=== PATIENT | male | born 1940 | race Caucasian/White ===

== ENCOUNTER 2020-09-24 14:43 | Emergency (ER) | payer MEDICARE, SELFPAY ==
[2020-09-24 14:44] VITALS: BP 176/69; PULSE 55; RESP 18; TEMP 36.1; O2SAT 97; BMI 28.7
--- NOTE | 2020-09-24 15:15 | EKG12_ITS ---
Test Reason : HEART RATE Blood Pressure : / mmHG Vent. Rate : 069 BPM Atrial Rate : 068 BPM P-R Int : 280 ms QRS Dur : 086 ms QT Int : 408 ms P-R-T Axes : 062 043 043 degrees QTc Int : 437 ms Sinus rhythm with 1st degree A-V block with Premature supraventricular complexes Low voltage QRS Borderline ECG Confirmed by JEFFERSON ALLEN, BRETT ([id number]), assistant editor MAYELA NÚÑEZ ([id number]) on 09/28/2020 10:28:24 AM Referred By: Confirmed By:BRETT PAULINO MD
[2020-09-24 15:45] VITALS: BP 119/93; PULSE 62; RESP 12; O2SAT 97
--- NOTE | 2020-09-24 15:56 | ED.DCSUM_ITS ---
History of Present Illness Chief Complaint: Abd Pain Informant: Patient Onset: Days Context: Gradual Onset Timing: Intermittent Current Severity: Moderate Maximum Severity: Moderate Narrative: Patient is a 80-year-old male with medical history significant for hypercholesterolemia, BPH, who presents to the emergency department abdominal pain. Patient states that about a week ago, he was try to move his bowels. He states that he was straining and felt constipated. He states since that time, has had intermittent pain in his right upper quadrant. He does have prior cholecystectomy. He denies any nausea or vomiting. He denies any fevers. He was sent to urgent care. Apparently, they were concerned for an irregular pulse. The patient was sent over here for further evaluation. EKG obtained in triage shows sinus rhythm with a few PACs. There is no atrial fibrillation. There is no acute ischemia. He denies chest pain or dyspnea. Prior similar symptoms: No Recent Illness/Hospitalization: No Past Medical History - Allergies and Home Meds Allergies/Adverse Reactions: Allergies No Known Allergies Allergy (Verified 09/24/20 14:48) Primary Care Physician: Jenny Vega MD [STAFF PHYSICIAN] - Prior records reviewed: Yes Past Medical History: - - Cholesterol Surgical History: cholecystectomy Smoking Status: Former smoker - Family History Paternal Family History: Reports: Heart Disease - His father at the age of 46 DUE TO possible NM Review of Systems General: Denies: Chills, Fever, Sweats Eyes: Denies: Visual changes - bilaterally, Diplopia ENT: Denies: Rhinorrhea, Sore throat Cardiovascular: Denies: Chest pain, Palpitations Respiratory: Denies: Dyspnea, Cough, Dyspnea on exertion Gastrointestinal: Reports: Abdominal pain. Denies: Nausea, Vomiting, Diarrhea, Melena, Hematochezia Genitourinary: Denies: Dysuria, Hematuria, Frequency Musculoskeletal: Denies: Back pain, Extremity Pain Skin: Denies: Rash, Wounds Neurological: Denies: Headache, Weakness, Numbness Physical Exam Vital Signs/Narrative: Vital Signs Temp Pulse Resp BP Pulse Ox 09/24/20 15:45 62 12 119/93 H 97 09/24/20 14:44 96.9 F L 55 L 18 176/69 H 97 Inital Vital Signs reviewed: Yes General: Well nourished, Well developed, No Acute Distress Head: Normocephalic, Atraumatic Eyes: Perrl, EOMI ENT: Moist mucous membranes, No rhinorrhea Neck: Supple, Nontender Cardiovascular: Regular rate, Regular rhythm, No murmurs Respiratory: No distress, CTA bilaterally, Chest nontender Abdomen: Soft, Nontender, Nondistended, Normal bowel sounds Back: Nontender, Normal Inspection Extremities: Nontender, No edema Skin: Normal color, No rash Neurological: Alert, Oriented x3, Cranial nerves II-XII grossly intact, Normal Strength, Normal Sensation Psychological: Normal affect, Normal Mood Diagnostic/Tx/Re-eval Clinical Impression(s) from Imaging Studies Abdomen/Pelvis CT 09/24/20 16:40 IMPRESSION: No acute abnormalities identified. Mild left renal pelvocaliectasis but no evidence for gross hydronephrosis or ureteral calculus. Nonvisualization of gallbladder consistent with prior cholecystectomy and probable appendectomy.. Electronically Signed: Adithya Portillo MD at 17:14 EDT , Service support , Abnormal Lab Results 09/24/20 09/24/20 16:03 16:03 WBC 5.2 RBC 5.20 Hgb 16.1 Hct 49.1 MCV 94.4 H MCH 31.0 MCHC 32.8 RDW Std Deviation 48.9 H RDW Coeff of Suresh 14.1 Plt Count 148 L MPV 9.2 Immature Gran % (Auto) 0.400 Neut % (Auto) 60.3 Lymph % (Auto) 26.3 [place] % (Auto) 11.0 H Eos % (Auto) 1.0 Baso % (Auto) 1.0 Absolute Neuts (auto) 3.1 Absolute Lymphs (auto) 1.36 Nucleated RBC % 0 Sodium 139 Potassium 4.3 Chloride 106 Carbon Dioxide 27.0 Anion Gap 6 BUN 18 Creatinine 1.36 H Estim Creat Clear Calc 45.48 Est GFR (MDRD) Af Amer 65 Est GFR (MDRD) Non-Af 54 L BUN/Creatinine Ratio 13.2 Glucose 91 Calcium 8.9 Total Bilirubin 1.30 H AST 18 ALT 25 Alkaline Phosphatase 67 Troponin I < 0.015 Total Protein 7.6 Albumin 3.6 Globulin 4.0 Albumin/Globulin Ratio 0.9 Lipase 114 - Rhythm Strip Rhythm Strip: Sinus Rhythm Rate: 70 Ectopy: PAC(s) - EKG Initial EKG Interpretation: Sinus Rhythm, No Acute Injury Pattern, AV Block Prior: No Prior - Medical Decision Making The patient presents with intermittent abdominal cramping. His abdomen is soft and nontender. He was sent over because they were concerned for an irregular heart rate. Again, his EKG shows first-degree AV block with a few PACs. There is no evidence of atrial fibrillation. Screening labs obtained were unremarkable. Patient underwent CT. There is no evidence of acute intra- abdominal process. Patient is a no further symptoms. At this point, do feel that he is safe for outpatient follow-up. He is comfortable with this plan of care. Impression 1. PACs 2. Right upper quadrant abdominal pain ED Disposition - Plan for ED Patient: Instructions: ED Palpitations, ED Unknown Causes of Abdominal ... Referrals: Jenny Vega MD [STAFF PHYSICIAN] -
[2020-09-24] MEDS: 0.9% Normal Saline 1,000 ML 1000 ML IV (16:05)
[2020-09-24 16:13] LABS: Absolute Lymphocyte Count 1.36 X10^3/uL (0.83-4.51); Absolute Neutrophil Count 3.1 X10^3/uL (2.0-7.7); Basophil# 0.05 X10^3/uL; Eosinophil# 0.05 X10^3/uL; Hematocrit 49.1 % (40-54); Hemoglobin 16.1 g/dL (13.0-16.5); Lymphocyte # 1.36 X10^3/ul (4.0); Lymphocyte % 26.3 % (19-41); Mean Corp Hgb Conc 32.8 g/dL (32-36); Mean Corpuscular Volume 94.4 fL (80-94); Mean Platelet Vol. 9.2 fl (6.2-12.0); Monocyte# 0.57 X10^3/uL; NRBC Flagged by Analyzer 0 % (0-5); Neutrophil # 3.13 X10^3/uL (2.7-7.7); Neutrophil % 60.3 % (47-70); Platelet Count 148 K/mm3 (150-450); RBC Distribution Width CV 14.1 % (11.6-14.6); RBC Distribution Width SD 48.9 fl (35.1-43.9); White Blood Count 5.2 K/mm3 (4.4-11.0)
[2020-09-24 16:30] LABS: ALB/GLOB Ratio 0.9 RATIO (0.9-2.4); AST(SGOT) 18 U/L (15-37); Alanine Aminotransfer ALT/SGPT 25 U/L (16-61); Albumin, Serum 3.6 g/dL (3.2-5.0); Alkaline Phosphatase 67 U/L (45-117); Anion Gap 6 (5-15); BUN 18 mg/dL (7-18); BUN/Creat Ratio 13.2 RATIO (10-20); Calcium,Total 8.9 mg/dL (8.5-10.1); Chloride 106 mmol/L (98-107); Creatinine, Serum 1.36 mg/dL (0.70-1.30); EST Glomerular Filtration Rate 54 mL/min (>60); Est Glom Filt Rate - Afr Amer 65 mL/min (>60); Estimated Creatinine Clearance 45.48 ml/min; Glucose 91 mg/dL (74-106); Lipase 114 U/L (73-393); Potassium 4.3 mmol/L (3.5-5.1); Protein, Total 7.6 g/dL (6.4-8.2); Sodium Level 139 mmol/L (136-145)
--- NOTE | 2020-09-24 16:40 | CT_ITS ---
STUDY: CT ABDOMEN AND PELVIS WITH CONTRAST REASON FOR EXAM: Male, 80 years old. ruq pain RADIATION DOSAGE (If Supplied By Facility): CTDIvol = ( 10.63 ) mGy, DLP = ( 1053.20 ) mGycm TECHNIQUE: Transaxial images were obtained from the dome of the diaphragm to the symphysis pubis without oral contrast. IV-100 ML ISOVUE 300 was administered. Sagittal and coronal images were reconstructed. Individualized dose optimization techniques were used for this CT. COMPARISON: None. FINDINGS: Tiny granulomatous calcification at the right lung base.. The visualized portions of the heart are within normal limits. Normal liver. Gallbladder not visualized which may be consistent with prior cholecystectomy Tiny granulomatous calcifications within normal size spleen.. Normal pancreas. Normal bilateral adrenal glands. Tiny cyst in the right kidney.. Mild left renal pelvocaliectasis but no gross hydronephrosis or evidence for ureteral calculus.. Normal visualized stomach. Normal small intestine. Normal colon. Normal appendix is not visualized which may be due to prior appendectomy. There are no secondary signs for acute appendicitis Mild atherosclerotic changes of the aorta without evidence for aneurysm. Normal inferior vena cava. Normal retroperitoneum. Normal urinary bladder. Nonspecific enlargement of prostate. Small bilateral fat-containing inguinal hernias. Lumbar spine demonstrates mild spondylosis CT/Abdomen/Pelvis W IV Cont ONLY IMPRESSION: No acute abnormalities identified. Mild left renal pelvocaliectasis but no evidence for gross hydronephrosis or ureteral calculus. Nonvisualization of gallbladder consistent with prior cholecystectomy and probable appendectomy.. Electronically Signed: Adithya Portillo MD at 17:14 EDT , Service support ,
[2020-09-24 17:37] VITALS: BP 126/80; PULSE 56; RESP 16; TEMP 36.1
== END 2020-09-24 17:37 | disposition home or self-care (01) ==
PROVIDERS: Emergency Provider Emergency Medicine; PCP Family Medicine
DX: I49.1 Atrial premature depolarization (principal); R10.11 Right upper quadrant pain; E78.00 Pure hypercholesterolemia, unspecified; Z87.891 Personal history of nicotine dependence; Z90.49 Acquired absence of other specified parts of digestive tract; Z79.82 Long term (current) use of aspirin
CPT/HCPCS: 74177; 80053; 83690; 84484; 85025; 93005; 96360; 96361; 99283; Q9967; A4216

== ENCOUNTER 2021-10-05 12:20 | Emergency (ER) | payer MEDICARE, SELFPAY ==
[2021-10-05 12:21] VITALS: BP 118/77; PULSE 81; RESP 16; TEMP 36.6; O2SAT 100; BMI 28.7
--- NOTE | 2021-10-05 12:56 | EDS_ITS ---
HPI History of Present Illness Chief Complaint: Nausea/Vomiting/Diarrhea Detail of Chief Complaint: Vomiting and diarrhea for approximately 48 hours Informant: patient Narrative Narrative: Patient presents to the emergency department with vomiting and diarrhea that started around 1 AM Monday morning. Patient has had frequent watery stools and frequent vomiting. He denies abdominal pain. He denies fever. He denies sick contacts. He denies eating any undercooked foods. Patient denies recent travel. Patient denies urinary symptoms. Prior similar symptoms: No PFSH PFSH Home Medications Pravastatin Sodium 10 mg PO QHS 02/23/14 [History Last Taken 02/22/14] aspirin 162 mg PO DAILY@0800 02/23/14 [History Last Taken 02/23/14] calcium-vitamin D3-vitamin K [Citracal-D3 Soft Chew] 2 ea PO DAILY 02/23/14 [History Last Taken 02/22/14] cholecalciferol (vitamin D3) [Vitamin D3] 1,000 unit PO QHS 02/23/14 [History Last Taken 02/22/14] levothyroxine 112 mcg PO MOTUTHFRSA 02/23/14 [History Last Taken 02/23/14] tamsulosin 0.4 mg PO QHS 02/23/14 [History Last Taken 02/22/14] melatonin-pyridoxine HCl (B6) 0.5 tab PO QHS 09/24/20 [History Last Taken Unknown] ondansetron 4 mg PO Q8H PRN PRN #10 tab 10/05/21 [Rx Last Taken Unknown] Allergy/AdvReac Type Severity Reaction Status Date / Time No Known Allergies Allergy Verified 10/05/21 12:23 Social History Smoking Status: Former smoker ROS [facility] ED Constitutional Constitutional ED: Reports systems reviewed and no addt'l complaints, except as documented; Denies body ache(s), change in weight or chills Eyes Eyes: Denies acute decrease in peripheral vision, change in vision, double vision or loss of vision ENT ENT ED: Reports none; Denies ear pain, lip swelling, loss taste/smell, neck pain, otalgia or sore throat Cardiovascular Cardiovascular: Reports none; Denies abdominal pain, chest pain with activity, leg edema, lightheadedness, palpitations, rapid heart rate or syncope Respiratory/Chest Respiratory/Chest: Reports none; Denies change in mental status, dry cough, dyspnea, hemoptysis, shortness of breath at rest or shortness of breath with exertion Gastrointestinal Gastrointestinal: Reports none, diarrhea, nausea and vomiting; Denies abdominal pain, change in stool character, hematemesis, hematochezia, melena or rectal bleeding Genitourinary Genitourinary ED: Reports none; Denies abdominal discomfort, anuria, dysuria, genital pain or polyuria Musculoskeletal Musculoskeletal: Reports none; Denies arthralgias, back pain, difficulty walking, extremity pain, muscle weakness or myalgias Integumentary Reports none; Denies abscess or rash Neurologic Neurologic: Reports none; Denies abnormal gait, confusion, focal weakness, frequent falls, headache(s), loss of vision, numbness, paresthesias, radicular pain, vertigo or weakness Psychiatric Psychiatric: Reports systems reviewed and no addt'l complaints, except as documented and none; Denies behavioral changes, confusion, difficulty con centrating, hallucinations, suicidal ideation, tactile hallucinations or visual hallucinations Endocrine Endocrinology: Denies none, cold intolerance, excessive sweating, fatigue or heat intolerance Hematologic/Lymphatic Hematologic/Lymphatic: Reports none; Denies anemia, easy bleeding or easy bruising Allergic/Immunologic Allergic/Immunologic ED: Denies as per HPI, none, lip swelling, mouth swelling, throat swelling, tongue swelling or hives EXAM Physical Exam Const Vital Signs: 10/05/21 12:21 10/05/21 14:29 Temperature 97.8 F Temperature Source Temporal Pulse Rate 81 84 Respiratory Rate 16 17 Blood Pressure 118/77 122/73 H Blood Pressure Mean 90 89 Pulse Ox 100 Oxygen Delivery Method Room Air Positive well nourished and well developed General Appearance ED: well developed and NAD HEENT Reports TM's clear and dry mucous membranes normocephalic and atraumatic; Negative for trauma or tenderness Tympanic Membrane ED: Yes TM's clear Mouth ED: Yes dry mucous membranes Mouth: dry mucous membranes Eyes PERRL and EOMs intact bilaterally General Eye ED: Negative for pale conjunctiva or scleral icterus Neck no lymphadenopathy, supple and no JVD General: Negative for tenderness Chest Wall inspection of chest normal and palpation of chest normal Chest: Negative for tenderness Resp normal respiratory effort and clear to auscultation bilaterally Effort and Inspection: Negative for respiratory distress or pain with movement Auscultation: Negative for rhonchi, wheezes or diminished lung sounds Cardio regular rate, regular rhythm, S1 normal heart sound, S2 normal heart sound and no murmurs Peripheral Pulses: pulses 2+ throughout GI normal to inspection, nondistended, normoactive bowel sounds, soft to palpation, non-tender, non-distended and no masses Back/Spine no CVA tenderness and no thoracic nor lumbar tenderness Extremity normal to inspection General Extremety ED: Negative for edema General Extremity: Negative for edema Neuro oriented x3, CN's II-XII intact bilaterally, no sensory deficits noted and gait normal Sensorium / Orientation: awake, alert, oriented to person, oriented to place and oriented to time Motor Exam: strength 5/5 throughout and strength abnormal Psych mental status grossly normal Skin no rashes or lesions noted and no wounds MDM MDM MDM Narrative Medical decision making narrative: IV line established on arrival. Patient was given a liter normal same fluid bolus. Patient was given Zofran 4 mg IV and Imodium p.o. Patient was able to give a stool sample for enteric pathogens the results of which will be pending. Patient had no further vomiting while in the department. Lab work-up was significant for some mild acute kidney injury and dehydration. I discussed with patient admission for hydration however he would like to go home and try to drink more fluids with antinausea medicine. I feel otherwise patient looks well and this is reasonable. Patient advised to return if persistent vomiting, diarrhea, dehydration, or conditions worsen anyway. Patient given a prescription for Zofran and advised use of Imodium for the diarrhea. Patient to follow-up with his primary care physician in 3 to 5 days. Lab Data Attestation: I reviewed the patient's lab results. Labs: Laboratory Results - last 24 hr 10/05/21 10/05/21 12:51 12:51 WBC 9.0 RBC 5.63 Hgb 17.7 H Hct 53.0 MCV 94.1 H MCH 31.4 MCHC 33.4 RDW Std Deviation 50.7 H RDW Coeff of Suresh 14.7 H Plt Count 198 MPV 9.4 Immature Gran % (Auto) 0.300 Neut % (Auto) 75.8 H Lymph % (Auto) 9.4 L [place] % (Auto) 14.2 H Eos % (Auto) 0.0 Baso % (Auto) 0.3 Absolute Neuts (auto) 6.8 Absolute Lymphs (auto) 0.85 Nucleated RBC % 0 Sodium 138 Potassium 3.8 Chloride 110 H Carbon Dioxide 22.0 Anion Gap 6 BUN 42 H Creatinine 1.98 H Estim Creat Clear Calc 30.72 Est GFR (MDRD) Af Amer 42 L Est GFR (MDRD) Non-Af 35 L BUN/Creatinine Ratio 21.2 H Glucose 106 Calcium 8.7 Discharge Plan Triage Chief Complaint: Nausea/Vomiting/Diarrhea ED Provider: Luc Johnston Dx/Rx/DC Orders Clinical Impression: Viral gastroenteritis Instructions: ED Gastroenteritis, Viral (Adult) Prescriptions: New ondansetron [ondansetron] 4 MG tablet 4 mg PO Q8H PRN PRN (Reason: Nausea) Qty: 10 RF: 0 No Action tamsulosin 0.4 MG capsule 0.4 mg PO QHS RF: 0 levothyroxine 112 MCG tablet 112 mcg PO MOTUTHFRSA RF: 0 cholecalciferol (vitamin D3) [Vitamin D3] 1,000 UNIT capsule 1,000 unit PO QHS RF: 0 calcium-vitamin D3-vitamin K [Citracal-D3 Soft Chew] 1 EACH tablet,chewable 2 ea PO DAILY RF: 0 Pravastatin Sodium 20 MG tablet 10 mg PO QHS RF: 0 aspirin 325 MG tablet 162 mg PO DAILY@0800 RF: 0 melatonin-pyridoxine HCl (B6) 1 EACH tablet 0.5 tab PO QHS RF: 0 Primary Care Provider: Ronan Brooks Referrals: Ronan Brooks MD [Primary Care Provider] - 3-5 Days Disposition Disposition: Home, Self Care
[2021-10-05] MEDS: 0.9% Normal Saline 1,000 ML 1000 ML IV (13:03)
[2021-10-05] MEDS: Ondansetron 4 MG/2 ML Vial IV (13:03)
[2021-10-05 13:04] LABS: Absolute Lymphocyte Count 0.85 X10^3/uL (0.83-4.51); Absolute Neutrophil Count 6.8 X10^3/uL (2.0-7.7); Basophil# 0.03 X10^3/uL; Basophil% 0.3 % (0-1); Hemoglobin 17.7 g/dL (13.0-16.5); Lymphocyte # 0.85 X10^3/ul (0.83-4.51); Lymphocyte % 9.4 % (19-41); Mean Corp Hgb Conc 33.4 g/dL (32-36); Mean Corpuscular Hgb 31.4 pg (27.0-32.0); Mean Corpuscular Volume 94.1 fL (80-94); Mean Platelet Vol. 9.4 fl (6.2-12.0); Monocyte# 1.28 X10^3/uL; Monocyte% 14.2 % (0-10); NRBC Flagged by Analyzer 0 % (0-5); Neutrophil # 6.81 X10^3/uL (2.7-7.7); Neutrophil % 75.8 % (47-70); Platelet Count 198 K/mm3 (150-450); RBC Distribution Width CV 14.7 % (11.6-14.6); RBC Distribution Width SD 50.7 fl (35.1-43.9); Red Blood Count 5.63 M/mm3 (4.6-6.2)
[2021-10-05] MEDS: Loperamide 2 MG Capsule 4 MG PO (13:04)
[2021-10-05 13:16] LABS: Anion Gap 6 (5-15); BUN 42 mg/dL (7-18); BUN/Creat Ratio 21.2 RATIO (10-20); Calcium,Total 8.7 mg/dL (8.5-10.1); Chloride 110 mmol/L (98-107); Creatinine, Serum 1.98 mg/dL (0.70-1.30); EST Glomerular Filtration Rate 35 mL/min (>60); Est Glom Filt Rate - Afr Amer 42 mL/min (>60); Estimated Creatinine Clearance 30.72 ml/min; Glucose 106 mg/dL (74-106); Potassium 3.8 mmol/L (3.5-5.1); Sodium Level 138 mmol/L (136-145)
[2021-10-05 14:29] VITALS: BP 122/73; PULSE 84; RESP 17
== END 2021-10-05 15:27 | disposition home or self-care (01) ==
PROVIDERS: Emergency Provider Emergency Medicine; PCP Family Medicine; Visit Provider Emergency Medicine
DX: A08.4 Viral intestinal infection, unspecified (principal); R19.7 Diarrhea, unspecified; Z87.891 Personal history of nicotine dependence; Z79.82 Long term (current) use of aspirin; Z79.899 Other long term (current) drug therapy
CPT/HCPCS: 80048; 85025; 87506; 96374; 99284; J7030; A4216; J2405

== ENCOUNTER → 2022-07-30 | Outpatient (CLI) | payer MEDICARE, SELFPAY ==
--- NOTE | 2022-07-30 12:52 | MRI_ITS ---
EXAM: MR HEAD WITHOUT INTRAVENOUS CONTRAST CLINICAL INDICATION: VITRITIS, R/O FITNESS INSTRUCTOR LYMPHOMA TECHNIQUE: Multiplanar and multisequence MR images of the brain were obtained without intravenous contrast. This report was created using [employer] report generation technology. COMPARISON: ct 10.25.08. FINDINGS: BRAIN AND EXTRA-AXIAL SPACES: Unremarkable. No intra- or extra-axial hemorrhage. No evidence of acute infarct. No intracranial mass or mass effect. There is preservation of the catherine/white matter interface. Posterior fossa structures are unremarkable. Ventricles are appropriate for age. No hydrocephalus. Basal cisterns are patent. SELLA: Unremarkable. Normal sella turcica, pituitary gland, infundibular stalk, optic chiasm and hypothalamus. AUDITORY SYSTEM: Unremarkable. The internal auditory canals are patent. BONES/JOINTS: Unremarkable. No discrete lytic or blastic abnormalities. SINUSES: Unremarkable as visualized. Clear. MASTOID AIR CELLS: Unremarkable as visualized. Clear. ORBITS: No gross abnormalities of the globes (eyes). However the diagnosis of scleritis / vitritis is based on an MRI with IV contrast. VASCULATURE: Unremarkable as visualized. Normal flow voids in the major intracranial circulation. MRI/Brain without Contrast IMPRESSION: No gross abnormalities of the globes (eyes). However the diagnosis of scleritis / vitritis is based on an MRI with IV contrast. Electronically Signed: Larry Alicia MD at 15:41 EST ,
--- NOTE | 2022-07-30 13:05 | RAD_ITS ---
STUDY: X-RAY - ORBITS REASON FOR EXAM: Male, 82 years old. HX METAL, PRE MRI TECHNIQUE: 2 view(s) of the orbits were obtained. COMPARISON: Head CT dated October 25, 2008. FINDINGS: Normal bilateral orbits without a metallic orbital foreign body. Normal visualized facial bones. Normal paranasal sinuses. The soft tissue structures are unremarkable. RAD/Orbits for Foreign Body IMPRESSION: No demonstrated metallic orbital foreign body. The patient is cleared for an MRI examination. Electronically Signed: Eliazar Vazquez MD at 13:39 EST ,
== END | disposition home or self-care (01) ==
LOC: MRI 12:43
PROVIDERS: PCP Family Medicine; Visit Provider Ophthalmology Retina Specialist
DX: H43.89 Other disorders of vitreous body (principal)
CPT/HCPCS: 70030; 70551

== ENCOUNTER → 2023-06-13 | Outpatient (CLI) | payer OTHER, SELFPAY ==
--- NOTE | 2023-06-13 09:40 | ECHOD_ITS ---
Reason For Study: Chest Pain Left Ventricle Normal size and thickness. The left ventricular ejection fraction is 65 %. Normal diastology for age. Right Ventricle Normal right ventricle. Atria The left atrium is mildly enlarged. Normal right atrium. Mitral Valve Mild mitral annular calcification. Trivial mitral valve insufficiency. Tricuspid Valve Trivial tricuspid valve insufficiency. Unable to estimate RV systolic pressure due to insufficient tricuspid regurgitant envelope. Aortic Valve Trisinus/trileaflet aortic valve. Mild (1+) aortic valve insufficiency. Pulmonic Valve The pulmonic valve is not well visualized. Great Vessels Normal sized aortic root. Pericardium/Pleural No pericardial effusion. MMode/2D Measurements & Calculations LVIDd: 5.0 cm IVSd: 1.1 cm Ao root diam: 3.4 cm LVIDs: 3.3 cm LVPWd: 1.1 cm LA dimension: 4.3 cm FS: 34.7 % LAV(MOD-bp): 70.8 ml LVAd ap4: 29.9 cm2 SV(MOD-sp4): 61.4 ml LAV(MOD-bp) Indexed: 34.2 ml/m2 LVLd ap4: 7.9 cm LAV(MOD-sp2): 66.9 ml EDV(MOD-sp4): 96.4 ml LAV(MOD-sp4): 66.7 ml EDV(sp4-el): 95.8 ml LVAs ap4: 16.5 cm2 LVLs ap4: 6.8 cm ESV(MOD-sp4): 35.0 ml ESV(sp4-el): 34.0 ml EF(MOD-sp4): 63.7 % EF(sp4-el): 64.5 % SV(sp4-el): 61.8 ml LA A4 area: 22.7 cm2 RA A4 area: 20.9 cm2 TAPSE: 1.9 cm Time Measurements MV dec time: 0.28 sec Doppler Measurements & Calculations MV E max beto: 73.2 cm/sec Lat Peak E' Beto: 10.1 cm/sec Med Peak E' Beto: 8.5 cm/sec MV A max beto: 78.9 cm/sec E/E' lat: 7.3 E/E' med: 8.6 MV E/A: 0.93 MV V2 max: 92.8 cm/sec MV P1/2t max beto: 93.9 cm/sec Ao V2 max: 138.9 cm/sec MV max P.4 mmHg MV P1/2t: 112.4 msec Ao max P.7 mmHg MV V2 mean: 51.2 cm/sec MV dec slope: 244.6 cm/sec2 Ao V2 mean: 90.5 cm/sec MV mean P.3 mmHg Ao mean P.8 mmHg MV V2 VTI: 40.1 cm MVA(P1/2t): 2.0 cm2 Ao V2 VTI: 33.3 cm AV (velocity ratio): 0.74 AI max beto: 393.5 cm/sec LV V1 max: 108.8 cm/sec PA V2 max: 113.6 cm/sec AI max P.0 mmHg LV V1 max P.8 mmHg PA V2 mean: 79.1 cm/sec AI dec slope: 170.7 cm/sec2 LV V1 mean P.2 mmHg AI P1/2t: 675.3 msec LV V1 mean: 68.3 cm/sec LV V1 VTI: 24.8 cm ECHO/Echo Complete Interpretation Summary The left ventricular ejection fraction is 65 %. Mild (1+) aortic valve insufficiency. Ordering Physician: Adithya Cates Referring Physician: Adithya Cates Performed By: Negro Ambrosio RCS
== END | disposition home or self-care (01) ==
LOC: CVS 09:38
PROVIDERS: PCP Family Medicine; Referring Provider Chiropractor; Visit Provider Chiropractor
DX: R07.9 Chest pain, unspecified (principal)
CPT/HCPCS: 93306

== ENCOUNTER 2023-09-21 09:12 | Emergency (ER) | payer OTHER, SELFPAY ==
[2023-09-21] VITALS (33 sets, daily range): BP systolic 124–163; BP diastolic 51–135; PULSE 38–93; RESP 8–20; TEMP 36.1–36.8; O2SAT 92–100; BMI 28.4; BMI 28.3
--- NOTE | 2023-09-21 10:16 | EX.ED.DYSGE1 ---
HPI History of Present Illness Chief Complaint: Neuro S/Sx [facility] Home Medications aspirin 325 mg tablet 162 mg PO DAILY@0800 02/23/14 [History Last Taken 02/23/14] calcium-vitamin D3-vitamin K 500 mg-1,000 unit-40 mcg chewable tablet (Citracal-D3 Soft Chew) 2 ea PO DAILY 02/23/14 [History Last Taken 02/22/14] cholecalciferol (vitamin D3) 25 mcg (1,000 unit) capsule (Vitamin D3) 1,000 unit PO QHS 02/23/14 [History Last Taken 02/22/14] levothyroxine 112 mcg tablet 112 mcg PO MOTUTHFRSA 02/23/14 [History Last Taken 02/23/14] tamsulosin 0.4 mg capsule 0.4 mg PO QHS 02/23/14 [History Last Taken 02/22/14] melatonin-pyridoxine HCl (vitamin B6) 3 mg-10 mg tablet 0.5 tab PO QHS 09/24/20 [History Last Taken Unknown] ondansetron 4 mg disintegrating tablet 4 mg PO Q8H PRN PRN Nausea #10 tabs 10/05/21 [Rx Last Taken Unknown] ezetimibe 10 mg tablet 10 mg PO DAILY 09/21/23 [History Last Taken Unknown] pravastatin 40 mg tablet 40 mg PO DAILY 09/21/23 [History Last Taken Unknown] Allergy/AdvReac Type Severity Reaction Status Date / Time No Known Allergies Allergy Verified 09/21/23 09:14 Social History Smoking Status: Former smoker EXAM Physical Exam Const Vital Signs: 09/21/23 09:14 09/21/23 10:21 09/21/23 09:53 Temperature 98.3 F Temperature Source Temporal Pulse Rate 93 58 L Respiratory Rate 14 13 Blood Pressure 163/69 H Blood Pressure Mean 100 Pulse Ox 100 92 Oxygen Delivery Method Room Air Room Air 09/21/23 10:00 09/21/23 10:10 09/21/23 10:15 Temperature Temperature Source Pulse Rate 55 L 50 L 46 L Respiratory Rate 15 10 L 14 Blood Pressure 140/92 H 133/79 H Blood Pressure Mean 105 96 Pulse Ox 93 93 93 Oxygen Delivery Method 09/21/23 10:21 09/21/23 10:51 09/21/23 11:21 Temperature Temperature Source Pulse Rate 54 L 56 L 57 L Respiratory Rate 18 16 14 Blood Pressure 141/79 H 139/123 H 147/98 H Blood Pressure Mean 99 128 114 Pulse Ox 94 94 97 Oxygen Delivery Method Room Air Room Air Room Air 09/21/23 11:51 09/21/23 10:20 09/21/23 10:30 Temperature Temperature Source Pulse Rate 49 L 54 L 59 L Respiratory Rate 16 15 16 Blood Pressure 160/135 H 141/79 H Blood Pressure Mean 143 97 Pulse Ox 96 93 95 Oxygen Delivery Method Room Air 09/21/23 10:40 09/21/23 10:45 09/21/23 10:50 Temperature Temperature Source Pulse Rate 63 68 59 L Respiratory Rate 17 16 19 H Blood Pressure 139/123 H Blood Pressure Mean 129 Pulse Ox 95 96 Oxygen Delivery Method 09/21/23 11:03 09/21/23 11:10 09/21/23 11:15 Temperature Temperature Source Pulse Rate 60 Respiratory Rate 8 L 13 Blood Pressure 157/79 H Blood Pressure Mean 103 Pulse Ox 97 97 Oxygen Delivery Method 09/21/23 11:25 09/21/23 11:30 09/21/23 11:32 Temperature Temperature Source Pulse Rate Respiratory Rate Blood Pressure 147/98 H Blood Pressure Mean 111 Pulse Ox 95 97 Oxygen Delivery Method 09/21/23 11:40 09/21/23 11:45 09/21/23 11:50 Temperature Temperature Source Pulse Rate 63 59 L 57 L Respiratory Rate 12 15 17 Blood Pressure 160/135 H Blood Pressure Mean 144 Pulse Ox 96 95 97 Oxygen Delivery Method 09/21/23 12:00 09/21/23 12:00 09/21/23 13:07 Temperature 96.9 F L Temperature Source Pulse Rate 38 L 51 L 52 L Respiratory Rate 20 H 16 13 Blood Pressure 134/88 H 131/74 H 156/78 H Blood Pressure Mean 103 93 104 Pulse Ox 95 94 98 Oxygen Delivery Method Nasal Cannula Room Air 09/21/23 12:00 09/21/23 12:10 09/21/23 12:12 Temperature Temperature Source Pulse Rate 44 L 46 L 50 L Respiratory Rate 12 16 14 Blood Pressure 124/51 H 134/88 H Blood Pressure Mean 65 100 Pulse Ox 96 94 93 Oxygen Delivery Method 09/21/23 12:15 09/21/23 12:20 09/21/23 12:38 Temperature Temperature Source Pulse Rate 54 L 51 L Respiratory Rate 15 9 L Blood Pressure 131/74 H 134/71 H Blood Pressure Mean 91 91 Pulse Ox 95 96 Oxygen Delivery Method 09/21/23 12:40 09/21/23 12:50 09/21/23 13:00 Temperature Temperature Source Pulse Rate 50 L 49 L 52 L Respiratory Rate 15 15 13 Blood Pressure 156/78 H Blood Pressure Mean 101 Pulse Ox 94 95 98 Oxygen Delivery Method [facility] [place] Narrative Medical decision making narrative: HISTORY OF PRESENT ILLNESS: 83-year-old male presents with concern for acute dissection . States he was received imaging at outside hospital which was concerning. He was told to come to the ED last night. REVIEW OF SYSTEMS: Pertinent positives: Dizziness, headache Pertinent negatives: Focal weakness, numbness, loss sensation, and coordination PHYSICAL EXAM: Nursing triage notes reviewed, Vital signs reviewed Constitutional: please see mdm HENT: MMM Eyes: Pupils equal round and reactive to light, Extraocular muscles intact Neck: No stridor, no JVD, full neck ROM Lungs: Clear to auscultation, No wheezing or rales. No increased work of breathing, no conversational dyspnea, no accessory muscle use, no nasal flaring. No respiratory distress noted Heart: Regular rate and rhythm, No murmurs, No rubs and No gallops, 2+ distal pulses (radial, femoral, posterior tibial) in all extremities Abdomen: Soft, there is no tenderness, rigidity, rebound or guarding, no obvious peritoneal signs, no palpable pulsatile abdominal masses, no auscultated abdominal bruit : No CVAT Extremities: No edema Neuro: Alert and oriented x3, neuro exam at baseline, cranial nerves II through XII are intact. No pain with extraocular muscle movement. There is negative test of skew. 5 of 5 strength in upper and lower extremities in flexion extension. Intact sensation to light touch in upper and lower extremity dermatomes. No truncal or extremity ataxia. No dysdiadochokinesia. Normal gait. 2+ reflexes in upper and lower extremities. No meningeal signs. Negative Babinski. NIH of 0. 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 MRI of the brain shows no acute infarct, acute intracranial hemorrhage or significant mass effect. This report communicated to Dr. Garcia on 09/20/2023 at 5:56 PM. Per outpatient records MRI brain and MRA results were communicated to Dr. Jeromy Rich at 8:10 AM on 09/21/2023 Factors affecting care: Hyperlipidemia, hypothyroidism Social determinants of health: none History obtained from others: Family Consults: Vascular surgery MDM Narrative: Due to poor department of conditions patient was seen approximately 1 hour prior to arrival by myself. Patient arrived in the ED at approximately 9 AM. shift boss at 10 AM. I assessed the patient at approximately 10:15 AM. At this time patient is asymptomatic has no complaints has a nonfocal neuroexam. I considered the following differential diagnosis: Carotid artery dissection, CVA Initial neurologic exam was nonfocal. NIH of 0. Not a candidate for TNK or thrombectomy. I obtained a broad lab and imaging workup to further elucidate etiology patient complaints ALL IMAGES (IF OBTAINED) HAVE BEEN PERSONALLY REVIEWED AND INTERPRETED BY MYSELF. CT of the head and neck shows no evidence of obvious carotid artery dissection. I spoke with radiologist Dr. Hand personally he also reiterated there is no dissection. Read the image I did not see an obvious dissection. Dr. Hand also noted that CTA is more sensitive for dissection then MRA. EKG with sinus bradycardia, first-degree AV block, left axis deviation, no STEMI, no arrhythmia or A-fib No coagulopathy noted I have personally reviewed the patient's chest x-ray. Chest x-ray is unremarkable for pulmonary edema, pneumothorax, pneumonia or focal cardiopulmonary abnormality. BMP without significant electrolyte disturbance, noted CKD I have personally reviewed the patient's chest x-ray. Chest x-ray is unremarkable for pulmonary edema, pneumothorax, pneumonia or focal cardiopulmonary abnormality. High-sensitivity troponin is negative, no evidence of myocardial ischemia Given there is no obvious finding of an emergency patient was discharged from the hospital with close follow-up with his PCP for outpatient evaluation and further treatment The patient and/or family, caregivers express understanding. The patient and/or family, caregivers agrees with the plan. Shared decision making: I will have a discussion with the patient and or visitors regarding risk/benefits of further testing or admission. They will be made aware of of the risk/benefits inherent in this decision they will be given the opportunity to voice understanding. Total critical care time today provided was at least 0 minutes. This excludes separately billable procedures. Critical care time (if documented) is secondary to the patient having high probability of clinically significant/life threatening deterioration in the patient's condition which required my urgent intervention. Impression: 1. Abnormal imaging finding 2. Carotid atherosclerosis Dispo: Discharge home This note was generated with [employer] dictation software. It may contain incorrect words, spelling, and punctuation that were not noted in review of the chart prior to signing. Lab Data Labs: Laboratory Results - last 24 hr 09/21/23 09:35 WBC 5.9 RBC 4.94 Hgb 15.6 Hct 46.8 MCV 94.7 H MCH 31.6 MCHC 33.3 RDW Std Deviation 48.1 H RDW Coeff of Suresh 13.9 Plt Count 159 MPV 9.6 Immature Gran % (Auto) 0.500 Neut % (Auto) 46.7 L Lymph % (Auto) 38.8 [place] % (Auto) 10.7 H Eos % (Auto) 1.9 Baso % (Auto) 1.4 H Absolute Neuts (auto) 2.7 Absolute Lymphs (auto) 2.28 Nucleated RBC % 0 PT 13.7 INR 1.1 APTT 27.1 Sodium 140 Potassium 4.1 Chloride 106 Carbon Dioxide 26.0 Anion Gap 8 BUN 17 Creatinine 1.38 H Estim Creat Clear Calc 46.54 Est GFR (MDRD) Af Amer 63 Est GFR (MDRD) Non-Af 52 L BUN/Creatinine Ratio 12.3 Glucose 99 Calcium 8.8 Troponin I High Sens 14 Radiography Diagnostic Testing: Clinical Impression(s) from Imaging Studies Chest X-Ray 09/21/23 10:21 IMPRESSION: Stable blunting of the left costophrenic angle. No acute abnormality is seen. Electronically Signed: Vini Hand MD at 11:29 EDT , Head/Neck CTA 09/21/23 10:21 IMPRESSION: Mild plaque formation at the origin of left internal carotid artery Electronically Signed: Vini Hand MD at 12:41 EDT , Discharge Plan Triage Chief Complaint: Neuro S/Sx ED Provider: Oziel Lagunas Dx/Rx/DC Orders Clinical Impression: Atherosclerosis of left carotid artery, Abnormal finding on imaging Prescriptions: No Action tamsulosin 0.4 MG capsule 0.4 mg PO QHS Patient Comments: TAKE 1 CAPSULE BY MOUTH DAILY AT BEDTIME. levothyroxine 112 MCG tablet 112 mcg PO MOTUTHFRSA cholecalciferol (vitamin D3) [Vitamin D3] 1,000 UNIT capsule 1,000 unit PO QHS calcium-vitamin D3-vitamin K [Citracal-D3 Soft Chew] 1 EACH tablet,chewable 2 ea PO DAILY aspirin 325 MG tablet 162 mg PO DAILY@0800 melatonin-pyridoxine HCl (B6) 1 EACH tablet 0.5 tab PO QHS ondansetron [ondansetron] 4 MG tablet 4 mg PO Q8H PRN PRN (Reason: Nausea) Qty: 10 0RF pravastatin 40 mg tablet 40 mg PO DAILY ezetimibe 10 mg tablet 10 mg PO DAILY Primary Care Provider: Ronan Brooks Referrals: Ronan Brooks MD [Primary Care Provider] - Activity Restrictions/Additional Instructions: Thank you for trusting us with your care today! Please take Tylenol (2 pills, 650 mg), ibuprofen (2 pills, 400 mg) every 6 hours as needed for pain and fever control. Please return to the emergency department if your symptoms change or worsen. Please follow with your primary care physician for further outpatient evaluation and management. Disposition Disposition: Home, Self Care Discharge Date/Time: 09/21/23 13:15
--- NOTE | 2023-09-21 10:21 | CT_ITS ---
STUDY: CTA HEAD AND NECK WITH CONTRAST REASON FOR EXAM: Male, 83 years old. Concern for left carotid a dissection RADIATION DOSAGE (If Supplied By Facility): CTDIvol = ( 33 ) mGy, DLP = ( 1616.18 ) mGycm TECHNIQUE: CT angiography was performed with a multi-detector CT scanner. Data acquisition was obtained from the skull base through the vertex following intravenous administration of IV 100mL [id number]-[id number]. MIP images were reconstructed from the axial data set. Post-processing of the angiographic images was performed, with multiplanar reformation and 3D reconstruction. Individualized dose optimization techniques were used for this CT. COMPARISON: No relevant priors. FINDINGS: Normal bilateral petrous carotid arteries. Normal right cavernous carotid artery with a normal supraclinoid bifurcation. Normal left cavernous carotid artery with a normal supraclinoid bifurcation. Normal right A1 segments of the anterior cerebral artery. Normal left A1 segments of the anterior cerebral artery. Normal intact anterior communicating artery (ACOM). Normal bilateral A2 segments of the anterior cerebral arteries. Normal right M1 and M2 segments of the middle cerebral arteries, with a normal M1 bifurcation. Normal left M1 and M2 segments of the middle cerebral arteries, with a normal M1 bifurcation. Normal right posterior communicating artery (PCOM). Normal left posterior communicating artery (PCOM). Normal bilateral vertebral arteries. Normal basilar artery with a normal basilar bifurcation. The visualized bilateral superior cerebellar (SCA) arteries are normal. Normal bilateral P1, P2 and visualized P3 segments of the posterior cerebral arteries. There is no demonstrated aneurysm of the [place] of [place]. Atherosclerotic calcification of the vertebral arteries bilaterally as well as cavernous portions of the internal carotid arteries. Calcification of basal ganglia bilaterally. This is a normal variant in an older patient. Mild degree of cerebral atrophy. Mucosal thickening of the maxillary sinuses bilaterally. Mucosal thickening of the ethmoid sinuses. AORTIC ARCH: There is atherosclerotic calcific plaque formation of the aortic arch and great vessels arising from the aortic arch, without a hemodynamically significant stenosis. There is a normal origin of the brachiocephalic, left common carotid, and left subclavian arteries. RIGHT CAROTID ARTERIES: Normal right common carotid artery (CCA). Normal right common carotid bulb. Normal origin of the right internal carotid (ICA) artery without a hemodynamically significant stenosis. Normal visualized cervical portion of the right internal carotid artery. Normal origin of the right external carotid artery (ECA). LEFT CAROTID ARTERIES: Normal left common carotid artery (CCA). Normal left common carotid bulb. There is mild atherosclerotic plaque formation of the origin of the left internal carotid artery with less than 50% cross sectional diameter stenosis. Normal visualized cervical portion of the left internal carotid artery. Normal origin of the left external carotid artery (ECA). VERTEBRAL ARTERIES: Normal bilateral vertebral arteries. CT/CTA Head AND Neck W/ Contrast IMPRESSION: Mild plaque formation at the origin of left internal carotid artery Electronically Signed: Vini Hand MD at 12:41 EDT ,
--- NOTE | 2023-09-21 10:21 | RAD_ITS ---
STUDY: X-RAY CHEST REASON FOR EXAM: Male, 83 years old. Neuro deficit, acute, stroke suspected TECHNIQUE: Single AP portable view of the chest. COMPARISON: Comparison is made with prior study February 23, 2014. FINDINGS: EKG electrodes are seen. The lungs are clear and expanded. Stable blunting of the left costophrenic angle. Normal size heart. Normal mediastinum and hannah. Normal visualized pulmonary arteries. There is atherosclerotic calcification of the aortic arch with tortuosity. There are diffuse degenerative changes of the visualized thoracic spine. Normal visualized ribs, clavicles, and shoulders. There is no demonstrated abnormality of the visualized soft tissue structures of the upper abdomen. RAD/Chest 1 View IMPRESSION: Stable blunting of the left costophrenic angle. No acute abnormality is seen. Electronically Signed: Vini Hand MD at 11:29 EDT ,
[2023-09-21 10:33] LABS: Absolute Lymphocyte Count 2.28 X10^3/uL (0.83-4.51); Absolute Neutrophil Count 2.7 X10^3/uL (2.0-7.7); Basophil# 0.08 X10^3/uL; Basophil% 1.4 % (0-1); Eosinophil# 0.11 X10^3/uL; Eosinophils% 1.9 % (0-5); Hematocrit 46.8 % (40-54); Hemoglobin 15.6 g/dL (13.0-16.5); Lymphocyte # 2.28 X10^3/ul (0.83-4.51); Lymphocyte % 38.8 % (19-41); Mean Corp Hgb Conc 33.3 g/dL (32-36); Mean Corpuscular Hgb 31.6 pg (27.0-32.0); Mean Corpuscular Volume 94.7 fL (80-94); Mean Platelet Vol. 9.6 fl (6.2-12.0); Monocyte# 0.63 X10^3/uL; Monocyte% 10.7 % (0-10); NRBC Flagged by Analyzer 0 % (0-5); Neutrophil # 2.74 X10^3/uL (2.7-7.7); Neutrophil % 46.7 % (47-70); Platelet Count 159 K/mm3 (150-450); RBC Distribution Width CV 13.9 % (11.6-14.6); RBC Distribution Width SD 48.1 fl (35.1-43.9); Red Blood Count 4.94 M/mm3 (4.6-6.2); White Blood Count 5.9 K/mm3 (4.4-11.0)
[2023-09-21 10:52] LABS: International Normalized Ratio 1.1; Prothrombin Time (Protime)PT. 13.7 SECONDS (11.7-14.9)
[2023-09-21 10:53] LABS: Partial Thromboplast Time 27.1 Seconds (24.1-36.2)
[2023-09-21 10:59] LABS: Anion Gap 8 (5-15); BUN 17 mg/dL (7-18); BUN/Creat Ratio 12.3 RATIO (10-20); Calcium,Total 8.8 mg/dL (8.5-10.1); Chloride 106 mmol/L (98-107); Creatinine, Serum 1.38 mg/dL (0.70-1.30); EST Glomerular Filtration Rate 52 mL/min (>60); Est Glom Filt Rate - Afr Amer 63 mL/min (>60); Estimated Creatinine Clearance 46.54 ml/min; Glucose 99 mg/dL (74-106); Potassium 4.1 mmol/L (3.5-5.1); Sodium Level 140 mmol/L (136-145); Troponin-I HS 14 pg/mL (3.0-78.0)
--- NOTE | 2023-09-21 12:43 | ED.RN ---
PER DR. SAMARA MUIR TO STOP [facility].
== END 2023-09-21 13:15 | disposition home or self-care (01) ==
PROVIDERS: Emergency Provider Emergency Medicine; PCP Family Medicine; Visit Provider Emergency Medicine
DX: I65.22 Occlusion and stenosis of left carotid artery (principal); Z87.891 Personal history of nicotine dependence
CPT/HCPCS: 70496; 70498; 71045; 80048; 84484; 85025; 85610; 85730; 93005; 99283; Q9967; A4216

== ENCOUNTER 2024-08-15 16:47 | Emergency (ER) | payer OTHER, SELFPAY ==
[2024-08-15 16:47] VITALS: BP 148/99; PULSE 68; RESP 18; TEMP 36.6; O2SAT 98; BMI 27.1
--- NOTE | 2024-08-15 16:51 | EKG12_ITS ---
Test Reason : CP Blood Pressure : */* mmHG Vent. Rate : 68 BPM Atrial Rate : 79 BPM P-R Int : * ms QRS Dur : 82 ms QT Int : 386 ms P-R-T Axes : * -44 121 degrees QTcB Int : 410 ms Normal sinus rhythm Left axis deviation Pulmonary disease pattern T wave abnormality, consider lateral ischemia Abnormal ECG Confirmed by JEFFERSON ALLEN, BRETT ([id number]), news copy editor MAYELA NÚÑEZ ([id number]) on 08/17/2024 8:01:27 AM Referred By: Juan Ramon Ortiz Confirmed By: BRETT PAULINO MD
--- NOTE | 2024-08-15 17:08 | RAD_ITS ---
PROCEDURE: CHEST 1 VIEW (PORTABLE) REASON FOR EXAM: Cramping. TECHNIQUE: Frontal view of the chest. COMPARISON: None. FINDINGS: The cardiac and mediastinal contours are normal. Mild bibasilar atelectasis. No consolidation. RAD/Chest 1 View (Portable) IMPRESSION: No acute cardiopulmonary abnormalities. Reading Location: [id number]
[2024-08-15 17:17] LABS: Absolute Lymphocyte Count 1.63 X10^3/uL (0.83-4.51); Basophil# 0.05 X10^3/uL; Basophil% 0.8 % (0-1); Eosinophil# 0.07 X10^3/uL; Eosinophils% 1.1 % (0-5); Hematocrit 48.6 % (40-54); Hemoglobin 15.4 g/dL (13.0-16.5); Lymphocyte # 1.63 X10^3/ul (0.83-4.51); Mean Corp Hgb Conc 31.7 g/dL (32-36); Mean Corpuscular Hgb 30.2 pg (27.0-32.0); Mean Corpuscular Volume 95.3 fL (80-94); Mean Platelet Vol. 9.4 fl (6.2-12.0); Monocyte# 0.77 X10^3/uL; Monocyte% 11.8 % (0-10); NRBC Flagged by Analyzer 0 % (0-5); Neutrophil # 3.95 X10^3/uL (2.7-7.7); Neutrophil % 60.7 % (47-70); Platelet Count 151 K/mm3 (150-450); RBC Distribution Width CV 14.4 % (11.6-14.6); RBC Distribution Width SD 50.3 fl (35.1-43.9); White Blood Count 6.5 K/mm3 (4.4-11.0)
[2024-08-15 17:50] LABS: Anion Gap 5 (5-15); BUN 19 mg/dL (7-18); BUN/Creat Ratio 13.4 RATIO (10-20); Chloride 106 mmol/L (98-107); Creatinine, Serum 1.42 mg/dL (0.70-1.30); EST Glomerular Filtration Rate 51 mL/min (>60); Est Glom Filt Rate - Afr Amer 61 mL/min (>60); Estimated Creatinine Clearance 41.98 ml/min; Glucose 81 mg/dL (74-106); Potassium 4.5 mmol/L (3.5-5.1); Sodium Level 139 mmol/L (136-145); Troponin-I HS (w/2H Reflex) 9 pg/mL (3.0-78.0)
[2024-08-15 18:47] VITALS: BP 136/68; PULSE 68
[2024-08-15 19:08] LABS: Reflex Troponin-HS? (from REC) Y
--- NOTE | 2024-08-15 19:32 | ED.VIS.CHEST ---
HPI History of Present Illness Chief Complaint: Chest Pain Detail of Chief Complaint: 20 minutes of sharp left-sided chest pain last evening Informant: patient Onset/Context/Timing Onset: Yesterday Activity at onset: sudden and rest Timing: Intermittent and Lasts (20 minutes) Quality: Positive for Sharp Location: Left Chest Current Severity: Gone Maximum Severity: Moderate Worsened By: Nothing Relieved By: Nothing Associated Symptoms: Positive for - (There is no history of VTE or any risk factors.); Negative for Nausea, Vomiting, Diaphoresis, Dyspnea, Cough, Fever, Lightheadedness, Acid Reflux or Palpitations Narrative Narrative: Patient is an 84-year-old male. He has history of hypercholesterolemia, hypothyroidism and BPH. He presents with 20 minutes of sharp left-sided chest pain. This occurred at rest. There were no alleviating, precipitating or exacerbating factors. There is no associated symptoms. There is no radiation. There is no infectious symptoms. He denies leg pain, swelling discoloration. Patient denies any GI symptoms. There is no history of trauma. Prior Similar Symptoms: No Recent Illness/Hospitalization: No CVD Risk Factors: Positive for Hypercholesterolemia; Negative for Hypertension, Diabetes, Family History 1' </=55 or Smoking PE Risk Factors: Negative for Recent Travel/Surgery, Recent Immobilization, Prior DVT or PE, Cancer or OCP + Smoking + >/=35 TAD Risk Factors: Negative for Marfan's Syndrome, Hypertension or Family History [facility] Medical History Irregular heart beat Home Medications ?Medication ?Instructions ?Recorded ?Last Taken ?Type aspirin 325 mg tablet 162 mg PO DAILY@0800 02/23/14 02/23/14 History calcium 500 mg-vitamin D3 1,000 2 ea PO DAILY 02/23/14 02/22/14 History unit-vitamin K 40 mcg chewable tablet (Citracal-D3 Soft Chew) cholecalciferol (vitamin D3) 25 1,000 unit PO QHS 02/23/14 02/22/14 History mcg (1,000 unit) capsule (Vitamin D3) levothyroxine 112 mcg tablet 112 mcg PO MOTUTHFRSA 02/23/14 02/23/14 History tamsulosin 0.4 mg capsule 0.4 mg PO QHS 02/23/14 02/22/14 History melatonin-pyridoxine HCl (vitamin 0.5 tab PO QHS 09/24/20 Unknown History B6) 3 mg-10 mg tablet ondansetron 4 mg disintegrating 4 mg PO Q8H PRN PRN Nausea #10 tabs 10/05/21 Unknown Rx tablet ezetimibe 10 mg tablet 10 mg PO DAILY 09/21/23 Unknown History pravastatin 40 mg tablet 40 mg PO DAILY 09/21/23 Unknown History Allergy/AdvReac Type Severity Reaction Status Date / Time No Known Allergies Allergy Verified 08/15/24 16:47 Social History Smoking Status: Former smoker ROS ROS ED Constitutional Constitutional ED: Denies chills, fever(s) or subjective Eyes Eyes: Reports none ENT ENT ED: Denies ear pain or rhinorrhea Cardiovascular Cardiovascular: Reports as per HPI; Denies orthopnea or paroxysmal nocturnal dyspnea Respiratory/Chest Respiratory/Chest: Denies cough, dyspnea, dyspnea on exertion, orthopnea or paroxysmal nocturnal dyspnea Gastrointestinal Gastrointestinal: Denies abdominal pain, melena, nausea or vomiting Musculoskeletal Musculoskeletal: Denies arthralgias, back pain, myalgias or neck pain Integumentary Denies rash Neurologic Neurologic: Denies headache(s) or paresthesias Endocrine Endocrinology: Denies cold intolerance or heat intolerance Hematologic/Lymphatic Hematologic/Lymphatic: Denies easy bleeding or easy bruising EXAM Physical Exam Const Vital Signs: 08/15/24 16:47 08/15/24 18:21 08/15/24 18:21 Temperature 97.8 F Temperature Source Temporal Pulse Rate 68 Respiratory Rate 18 Respiratory Effort Short of Breath Blood Pressure 148/99 H Blood Pressure Mean 115 Pulse Ox 98 Oxygen Delivery Method Room Air Room Air 08/15/24 18:47 Temperature Temperature Source Pulse Rate 68 Respiratory Rate Respiratory Effort Blood Pressure 136/68 H Blood Pressure Mean 90 Pulse Ox Oxygen Delivery Method Positive well nourished and well developed General Appearance ED: well developed and NAD; Negative for pallor HEENT Reports moist mucous membranes normocephalic Eyes PERRL and EOMs intact bilaterally General Eye ED: Negative for pale conjunctiva or scleral icterus Neck no lymphadenopathy, supple and no JVD Chest Wall inspection of chest normal and palpation of chest normal Resp normal respiratory effort and clear to auscultation bilaterally Cardio regular rate, regular rhythm, S1 normal heart sound, S2 normal heart sound and no murmurs Peripheral Pulses: pulses 2+ throughout GI normal to inspection, nondistended, normoactive bowel sounds, soft to palpation, non-tender, non-distended and no masses; Negative for hepatosplenomegaly Back/Spine Back/Spine Narrative: Inspection is normal. Extremity Extremity Narrative: There is no asymmetry, swelling, discoloration, leg vein distention, palpable cords or tenderness along the distribution of the deep venous system. Neuro oriented x3 and CN's II-XII intact bilaterally Sensorium / Orientation: awake and alert Psych mental status grossly normal Skin no rashes or lesions noted and no wounds General Skin Exam: Negative for jaundice or pallor MDM MDM MDM Narrative Medical decision making narrative: Differential diagnoses chest pain of cardiac versus noncardiac. Noncardiac may include GERD, esophagitis, esophageal spasm, peptic ulcer disease, pulmonary disease. Wells score less than 3 for PE. Nurse protocol orders were initiated. Patient states he was sent in by his hand cloth folder. He sees a hand cloth folder because of irregular heartbeat in the past. History & Record Review Additional record(s) reviewed:: Prior ED visit (ER visit September 2021 for viral gastroenteritis, September 2020 for right upper quadrant pain and February 2014 for atypical chest pain.) Lab Data Lab results narrative: CBC is unremarkable. Basic metabolic panel was elevated BUN/creatinine of 19 and 1.42 with an estimated GFR 51. First troponin is normal at 9. Glucose is normal. 2-hour troponin is 8 with a delta of -1. Patient was discharged to home. Patient has a chronic elevation of his creatinine since September 2020 Labs: Laboratory Results - last 24 hr 08/15/24 08/15/24 17:00 19:14 WBC 6.5 RBC 5.10 Hgb 15.4 Hct 48.6 MCV 95.3 H MCH 30.2 MCHC 31.7 L RDW Std Deviation 50.3 H RDW Coeff of Suresh 14.4 Plt Count 151 MPV 9.4 Immature Gran % (Auto) 0.600 Neut % (Auto) 60.7 Lymph % (Auto) 25.0 Sequoyah % (Auto) 11.8 H Eos % (Auto) 1.1 Baso % (Auto) 0.8 Absolute Neuts (auto) 4.0 Absolute Lymphs (auto) 1.63 Nucleated RBC % 0 Sodium 139 Potassium 4.5 Chloride 106 Carbon Dioxide 28.0 Anion Gap 5 BUN 19 H Creatinine 1.42 H Estim Creat Clear Calc 41.98 Est GFR (MDRD) Af Amer 61 Est GFR (MDRD) Non-Af 51 L BUN/Creatinine Ratio 13.4 Glucose 81 Calcium 9.0 Troponin I High Sens 9 8 Radiography Diagnostic Testing: Clinical Impression(s) from Imaging Studies Chest X-Ray 08/15/24 17:08 IMPRESSION: No acute cardiopulmonary abnormalities. Reading Location: [facility] EKG Initial EKG: Attestation: I personally reviewed and interpreted this EKG as follows: Interpretation: Sinus Rhythm (Sinus rhythm rate of 68 with a first-degree AV block. ID interval is prolonged. [place] to the left. QRS duration 82 ms. QT duration 386 ms. There is artifact that the computer is reading as T wave abnormality consider ischemia.) Treatment and Re-Evaluation :: Patient and were informed of results. Will discharge to home. Discharge Plan Triage Chief Complaint: Chest Pain ED Provider: Juan Ramon Ortiz Dx/Rx/DC Orders Clinical Impression: Left-sided chest pain, Hypothyroidism, Hypercholesterolemia, Chronic renal insufficiency, Heart block, first degree Instructions: ED Chest Pain, Noncardiac, ED Chest Pain, Uncertain Cause Prescriptions: No Action tamsulosin 0.4 MG capsule 0.4 mg PO QHS Patient Comments: TAKE 1 CAPSULE BY MOUTH DAILY AT BEDTIME. levothyroxine 112 MCG tablet 112 mcg PO MOTUTHFRSA cholecalciferol (vitamin D3) [Vitamin D3] 1,000 UNIT capsule 1,000 unit PO QHS calcium-vitamin D3-vitamin K [Citracal-D3 Soft Chew] 1 EACH tablet,chewable 2 ea PO DAILY aspirin 325 MG tablet 162 mg PO DAILY@0800 melatonin-pyridoxine HCl (B6) 1 EACH tablet 0.5 tab PO QHS ondansetron [ondansetron] 4 MG tablet 4 mg PO Q8H PRN PRN (Reason: Nausea) Qty: 10 0RF pravastatin 40 mg tablet 40 mg PO DAILY ezetimibe 10 mg tablet 10 mg PO DAILY Primary Care Provider: Ronan Brooks Referrals: Ronan Brooks MD [Primary Care Provider] - As Needed Print Language: [place] Citizen Disposition Disposition: Home, Self Care
[2024-08-15 19:41] LABS: Troponin-I HS 8 pg/mL (3.0-78.0)
[2024-08-15 19:52] VITALS: BP 136/68; PULSE 68; RESP 16; TEMP 37; O2SAT 96
== END 2024-08-15 19:58 | disposition home or self-care (01) ==
LOC: ED 19:55
PROVIDERS: Emergency Provider Emergency Medicine; PCP Family Medicine; Referring Provider Emergency Medicine; Visit Provider Emergency Medicine
DX: R07.9 Chest pain, unspecified (principal); I44.0 Atrioventricular block, first degree; N18.9 Chronic kidney disease, unspecified; E03.9 Hypothyroidism, unspecified; E78.00 Pure hypercholesterolemia, unspecified; N40.0 Benign prostatic hyperplasia without lower urinary tract symptoms; Z79.82 Long term (current) use of aspirin; Z79.890 Hormone replacement therapy; Z79.899 Other long term (current) drug therapy; Z87.891 Personal history of nicotine dependence
CPT/HCPCS: 71045; 80048; 84484; 85025; 93005; 99283; A4216

== ENCOUNTER 2024-09-23 14:59 | Emergency (ER) | payer OTHER, SELFPAY ==
[2024-09-23 15:01] VITALS: BP 108/68; PULSE 65; RESP 15; TEMP 36.3; O2SAT 97; BMI 30.7
[2024-09-23 17:00] VITALS: BP 145/76; PULSE 70; RESP 18; O2SAT 95
--- NOTE | 2024-09-23 17:43 | CT_ITS ---
EXAM: BRAIN/HEAD WITHOUT CONTRAST CLINICAL HISTORY: TRAUMA COMPARISON: 09/21/2023 TECHNIQUE: CT of the head without contrast with coronal and sagittal reformatted images FINDINGS: No intracranial hemorrhage, mass effect or calvarial fracture. The catherine-white differentiation appears preserved. The ventricles are unchanged in size and remain midline. Mild convexity volume loss again noted. Nasal fracture, see facial CT for further detail. CT/Brain/Head without Contrast IMPRESSION: No intracranial hemorrhage, mass effect or calvarial fracture. Nasal fracture, see facial CT for further detail. Reading Location: [id number]
--- NOTE | 2024-09-23 17:43 | CT_ITS ---
PROCEDURE: SPINE CERVICAL WITHOUT CONTRAS 09/23/2024 REASON FOR EXAM: TRAUMA TECHNIQUE: Cervical spine CT without contrast. Coronal and Sagittal reconstruction series were provided. One or more dose reduction techniques were used (e.g., Automated exposure control, adjustment of the mA and/or kV according to patient size, use of iterative reconstruction technique COMPARISON: None. RADIATION DOSE SUMMARY: CTDlvol: 20.92 mGy DLP: 419.16 mGycm FINDINGS: No fracture or malalignment. Straightening may represent positioning or spasm. No prevertebral soft tissue swelling. C5-6 and C6-7 spondylosis/discogenic change and right-sided foraminal narrowing. Left- sided foraminal narrowing greatest at C6-7. Facet osseous fusion C2-3 and left-sided asymmetric hypertrophic facet degenerative changes C4 and C5 with associated severe appearing left-sided foraminal narrowing C3-4 and C4-5 sagittal 35. Mild left carotid calcific plaque formation. CT/Spine Cervical without Contras IMPRESSION: No fracture or malalignment. Straightening may represent positioning or spasm. No prevertebral soft tissue swelling. Multilevel spondylosis/discogenic changes above. Reading Location: [id number]
--- NOTE | 2024-09-23 17:43 | CT_ITS ---
EXAM: SINUS/FACIAL BONE CLINICAL HISTORY: TRAUMA COMPARISON: 09/21/2023 TECHNIQUE: Noncontrast CT of the face with coronal and sagittal reformatted images FINDINGS: Center artifact from dental amalgam. Oblique fracture right side of the nasal bone and fracture of the left nasal bone anteriorly with very mild appearing displacement. Associated overlying soft tissue swelling. No other acute appearing fracture identified. Mild leftward septal deviation appears similar to the prior exam. TMJs appear normally located. Mild maxillary, frontal, ethmoid sinus mucoperiosteal thickening. Possible small mucous retention cyst left sphenoid sinus. No air-fluid level. Globes appear intact without retro bulbar stranding. Mastoids are clear. CT/Sinus/Facial Bone IMPRESSION: Oblique fracture right side of the nasal bone and fracture of the left nasal maria alejandra ne anteriorly with very mild appearing displacement. Associated overlying soft tissue swelling. No other acute appearing fracture identified. Mild leftward septal deviation appears similar to the prior study. Reading Location: [id number]
--- NOTE | 2024-09-23 17:47 | EX.ED.GENINJ ---
HPI History of Present Illness Chief Complaint: Fall Informant: patient and family Narrative Narrative: 84-year-old male presenting to the emergency room for facial trauma following a fall. Patient was going up concrete steps when he missed stepped and fell striking his face on the ground. No reported loss of conscious. He states that he is not on blood thinners. He notes an injury to the inside of his upper lip as well as the nose. He denies any arm or leg symptoms. He denies any back pain or neck pain. [facility] Medical History Irregular heart beat Medical History no medical history Home Medications ?Medication ?Instructions ?Recorded ?Last Taken ?Type aspirin 325 mg tablet 162 mg PO DAILY@0800 02/23/14 02/23/14 History calcium 500 mg-vitamin D3 1,000 2 ea PO DAILY 02/23/14 02/22/14 History unit-vitamin K 40 mcg chewable tablet (Citracal-D3 Soft Chew) cholecalciferol (vitamin D3) 25 1,000 unit PO QHS 02/23/14 02/22/14 History mcg (1,000 unit) capsule (Vitamin D3) levothyroxine 112 mcg tablet 112 mcg PO MOTUTHFRSA 02/23/14 02/23/14 History tamsulosin 0.4 mg capsule 0.4 mg PO QHS 02/23/14 02/22/14 History melatonin-pyridoxine HCl (vitamin 0.5 tab PO QHS 09/24/20 Unknown History B6) 3 mg-10 mg tablet ondansetron 4 mg disintegrating 4 mg PO Q8H PRN PRN Nausea #10 tabs 10/05/21 Unknown Rx tablet ezetimibe 10 mg tablet 10 mg PO DAILY 09/21/23 Unknown History pravastatin 40 mg tablet 40 mg PO DAILY 09/21/23 Unknown History amoxicillin 875 mg-potassium 875 mg PO Q12H #10 TABLETS 09/23/24 Unknown Rx clavulanate 125 mg tablet Allergy/AdvReac Type Severity Reaction Status Date / Time No Known Allergies Allergy Verified 08/15/24 16:47 Family History no significant family his Surgical History no surgical history Social History Smoking Status: Former smoker ROS ROS ED Constitutional Constitutional ED: Denies chills, fever(s) or weight loss Eyes Eyes: Denies change in vision or diplopia ENT ENT ED: Reports other Details: See history of present illness ; Denies ear pain, rhinorrhea or sore throat Cardiovascular Cardiovascular: Denies chest pain, orthopnea, palpitations or racing heartbeat Respiratory/Chest Respiratory/Chest: Denies cough, dyspnea or orthopnea Gastrointestinal Gastrointestinal: Denies abdominal pain, diarrhea, nausea or vomiting Genitourinary Genitourinary ED: Denies dysuria, hematuria or urinary frequency Musculoskeletal Musculoskeletal: Denies arthralgias, back pain, myalgias or neck pain Integumentary Denies abscess or rash Neurologic Neurologic: Denies headache(s) or weakness Psychiatric Psychiatric: Denies anxiety, depression, suicidal ideation or suicidal thoughts Endocrine Endocrinology: Denies polydipsia, polyphagia or polyuria Allergic/Immunologic Allergic/Immunologic ED: Denies mouth swelling, tongue swelling or urticaria EXAM Physical Exam Const Vital Signs: 09/23/24 15:01 09/23/24 16:51 09/23/24 17:00 Temperature 97.4 F L Temperature Source Oral Pulse Rate 65 70 Respiratory Rate 15 18 Respiratory Effort Normal Respiratory Depth Normal Respiratory Pattern Normal Blood Pressure 108/68 145/76 H Blood Pressure Mean 81 99 Pulse Ox 97 95 Oxygen Delivery Method Room Air Room Air 09/23/24 19:00 09/23/24 19:09 Temperature 97.4 F L Temperature Source Pulse Rate 66 66 Respiratory Rate 16 16 Respiratory Effort Respiratory Depth Respiratory Pattern Blood Pressure 145/76 H Blood Pressure Mean 99 Pulse Ox 95 Oxygen Delivery Method Positive well nourished and well developed General Appearance ED: well developed HEENT Reports normocephalic and moist mucous membranes HEENT Narrative: There are multiple abrasions to philtrum. There is a 1.5 cm laceration to the distal end of the left naris. There is swelling. Abrasion over the bridge of the nose. Midface appears stable. There is no obvious dental trauma. Inner upper lip demonstrates tearing of his frenulum as well as a laceration of about half centimeter. The wound edges however are fairly well-approximated and does not appear to be gaping. There is no septal hematoma. Eyes PERRL and EOMs intact bilaterally Neck full ROM, no lymphadenopathy, supple and no JVD Resp normal respiratory effort and clear to auscultation bilaterally Cardio regular rate, regular rhythm and no murmurs GI normal to inspection, nondistended, normoactive bowel sounds and non-tender Palpation: soft Back/Spine no CVA tenderness and normal ROM Extremity normal to inspection General Extremety ED: Negative for edema General Extremity: Negative for edema Neuro oriented x3 and CN's II-XII intact bilaterally Sensorium / Orientation: alert Motor Exam: strength 5/5 throughout Psych mental status grossly normal Mood & Affect: Negative for depressed or tearful Skin no rashes or lesions noted Trauma: abrasion Wounds: wounds noted MDM MDM MDM Narrative Medical decision making narrative: Differential diagnosis includes but not limited to intracranial hemorrhage skull fracture facial fracture dental trauma laceration septal hematoma cervical spine injury CT the brain does not demonstrate intracranial hemorrhage or skull fracture. Nasal fractures noted. CT of the facial bones demonstrates nasal fracture. CT of the cervical spine does not demonstrate an acute cervical fracture. Wounds were locally anesthetized on the nose with let and later 1% lidocaine. It was washed with Shur-Clens and explored. It was closed using 4 simple interrupted 5-0 Ethilon sutures. The rest of the abrasions will be dressed with bacitracin. The inner lip laceration I think we can treat without having to suture. We talked about a liquid diet over the next couple days and avoidance of small particle foods. He was given a dose of Augmentin I will place him on Augmentin as well to help prevent oral infection. Stitches will need to be removed 5 to 7 days. Patient has family are comfortable with this plan return if worsening or concerns History & Record Review Discussion w/independent historian: Patient and Family Radiography Diagnostic Testing: Clinical Impression(s) from Imaging Studies Brain CT 09/23/24 17:43 IMPRESSION: No intracranial hemorrhage, mass effect or calvarial fracture. Nasal fracture, see facial CT for further detail. Reading Location: [facility] Cervical Spine CT 09/23/24 17:43 IMPRESSION: No fracture or malalignment. Straightening may represent positioning or spasm. No prevertebral soft tissue swelling. Multilevel spondylosis/discogenic changes above. Reading Location: [id number] Facial/Sinus 09/23/24 17:43 IMPRESSION: Oblique fracture right side of the nasal bone and fracture of the left nasal bone anteriorly with very mild appearing displacement. Associated overlying soft tissue swelling. No other acute appearing fracture identified. Mild leftward septal deviation appears similar to the prior study. Reading Location: [facility] Discharge Plan Triage Chief Complaint: Fall ED Provider: Wan Ramon Dx/Rx/DC Orders Clinical Impression: Fall, Abrasion of face, Laceration of nose, Fracture of nasal bone, Laceration of mouth Instructions: ED Nose Fracture, with X-Ray, ED Head Injury (Adult), ED Laceration, All Closures Prescriptions: New amoxicillin-pot clavulanate 875-125 mg tablet 875 mg PO Q12H Qty: 10 0RF No Action tamsulosin 0.4 MG capsule 0.4 mg PO QHS Patient Comments: TAKE 1 CAPSULE BY MOUTH DAILY AT BEDTIME. levothyroxine 112 MCG tablet 112 mcg PO MOTUTHFRSA cholecalciferol (vitamin D3) [Vitamin D3] 1,000 UNIT capsule 1,000 unit PO QHS calcium-vitamin D3-vitamin K [Citracal-D3 Soft Chew] 1 EACH tablet,chewable 2 ea PO DAILY aspirin 325 MG tablet 162 mg PO DAILY@0800 melatonin-pyridoxine HCl (B6) 1 EACH tablet 0.5 tab PO QHS ondansetron [ondansetron] 4 MG tablet 4 mg PO Q8H PRN PRN (Reason: Nausea) Qty: 10 0RF pravastatin 40 mg tablet 40 mg PO DAILY ezetimibe 10 mg tablet 10 mg PO DAILY Primary Care Provider: [facility] Referrals: Ronan Brooks MD [Non-Staff] - 5 Days for suture removal Print Language: [place] Disposition Disposition: Home, Self Care Discharge Date/Time: 09/23/24 19:10
[2024-09-23] MEDS: Lidocaine/Epi/Tetracaine 50 ML 1 APPLIC TOPICAL (17:52)
[2024-09-23] MEDS: Lidocaine 1% (20 ml mdv) 20 ML Vial INFILT (18:02)
[2024-09-23 19:00] VITALS: PULSE 66; RESP 16
[2024-09-23] MEDS: Amox/Clavulanate 875 MG Tablet PO (19:02)
[2024-09-23 19:09] VITALS: BP 145/76; PULSE 66; RESP 16; TEMP 36.3; O2SAT 95
== END 2024-09-23 19:10 | disposition home or self-care (01) ==
PROVIDERS: Emergency Provider Emergency Medicine; Visit Provider Emergency Medicine
DX: S02.2XXA Fracture of nasal bones, initial encounter for closed fracture (principal); S01.512A Laceration without foreign body of oral cavity, initial encounter; S01.21XA Laceration without foreign body of nose, initial encounter; W10.9XXA Fall (on) (from) unspecified stairs and steps, initial encounter; Z87.891 Personal history of nicotine dependence
CPT/HCPCS: 12011; 70450; 70486; 72125; 99283; A4216